=== PATIENT | male | born 1970 | race Two or more races ===

== ENCOUNTER 2019-01-03 18:16 | Emergency (ER) | payer OTHER ==
[~2019-01-03] VITALS: Ht 175.3 cm; Wt 99.8 kg
== END 2019-01-03 20:44 | disposition home or self-care (01) ==
LOC: ER 18:16
DX: S93.402A Sprain of unspecified ligament of left ankle, initial encounter (principal); X50.3XXA Overexertion from repetitive movements, initial encounter; Y93.89 Activity, other specified; Y92.89 Other specified places as the place of occurrence of the external cause; Y99.8 Other external cause status

== ENCOUNTER 2019-10-14 12:39 | Emergency (ER) | payer OTHER ==
[~2019-10-14] VITALS: Ht 180.3 cm; Wt 131.5 kg
[2019-10-14] MEDS ORDERED: HYZAAR 100-12.1 EACH PO (12:59)
== END 2019-10-14 18:21 | disposition home or self-care (01) ==
LOC: ER 12:39
DX: S46.212A Strain of muscle, fascia and tendon of other parts of biceps, left arm, initial encounter (principal); X50.9XXA Other and unspecified overexertion or strenuous movements or postures, initial encounter; Y93.89 Activity, other specified; Y92.89 Other specified places as the place of occurrence of the external cause; Y99.8 Other external cause status

== ENCOUNTER 2019-10-15 13:20 | Outpatient (CLI) | payer OTHER ==
[~2019-10-15 13:20] MED LIST: HYZAAR 100-12.1 EACH PO
== END 2019-10-15 13:29 | disposition home or self-care (01) ==
LOC: SONOGRAMA 13:20
DX: S46.212A Strain of muscle, fascia and tendon of other parts of biceps, left arm, initial encounter (principal)

== ENCOUNTER 2022-04-19 18:34 | Emergency (ER) | payer OTHER ==
[~2022-04-19] VITALS: Ht 177.8 cm; Wt 137.9 kg
== END 2022-04-19 22:55 | disposition home or self-care (01) ==
LOC: ER 18:34
DX: R51.9 Headache, unspecified (principal); I10 Essential (primary) hypertension; Z20.822 Contact with and (suspected) exposure to COVID-19

== ENCOUNTER 2025-08-03 13:27 | Emergency (ER) | payer OTHER ==
[~2025-08-03] VITALS: Ht 180.3 cm; Wt 149.7 kg
[2025-08-03 13:57] VITALS: BP 142/87; O2SAT 95
[2025-08-03] MEDS ORDERED: LACTOBACILLUS ACIDOPHILUS 1 CAP CAP PO ONE ×2 (14:15→14:51)
[2025-08-03] MEDS ORDERED: ACETAMINOPHEN 500 MG GEL..CAP PO ONE ×2 (14:15→14:50)
[2025-08-03] MEDS ORDERED: FAMOTIDINE/PF 20 MG/2 ML VIAL IV ONE (14:15)
[2025-08-03] MEDS ORDERED: 0.9 % SODIUM CHLORIDE 500 ML IV ONE (14:30)
[2025-08-03] MEDS ORDERED: FAMOTIDINE/PF 20 MG/2 ML VIAL ONE (14:51)
[2025-08-03 15:42] LABS: BASO % 0.3 % (0.1-1.2); EOS # 0.00 (0.04-0.54); EOS % 0.0 % (0.7-7.0); LYMPH # 0.40 (1.18-3.74); LYMPH % 5.9 % (19.3-53.1); MEAN PLATELET VOLUME 10.50 fl (9.4-12.4); MONO # 0.34 (0.24-0.82); MONO % 5.0 % (4.7-12.5); NEUT # 5.99 (1.56-6.13); NEUT % 88.4 % (34.0-71.1); RED CELL DISTRIBUTION WIDTH 12.7 % (11.6-14.4)
[2025-08-03 16:23] LABS: ALT/SGPT 40.0 U/L (12-78); AST/SGOT 31.0 U/L (15-37); BILIRUBIN TOTAL 1.09 mg/dL (0.3-1.2); BUN CREA RATIO 19.0 (7.0-25.0); CREATININE SERUM 1.07 mg/dL (0.70-1.30); GFR 72.29; GLOBULINA 4.0 G/DL (2.4-3.5); GLUCOSE FASTING 129.0 mg/dL (65-100); OSMOLALITY SERUM 276.0 MOSM/KG (275-295)
[2025-08-03 16:39] LABS: URINE APPEARANCE Clear; URINE BILIRRUBIN Negative (NEGATIVE); URINE BLOOD Negative; URINE COLOR Dark Yellow; URINE GLUCOSE Negative (NEGATIVE); URINE KETONE Negative (NEGATIVE); URINE LEUKOCYTE Negative; URINE NITRATE Negative; URINE PROTEIN 30 (NEGATIVE); URINE UROBILINOGEN 0.2 E.U./dl
[2025-08-03 16:40] LABS: URINE BACTERIA 592.7 uL (0.0-1933); URINE EPITHELIAL CELLS 78.7 uL (0.0-38.8); URINE RBC 12.0 uL (0.0-20.8); URINE WBC 46.5 uL (0.0-23.2)
[2025-08-03 17:00] LABS: COVID-19 AG NEGATIVE (NEGATIVE)
[2025-08-03] MEDS ORDERED: KETOROLAC TROMETHAMINE 30 MG VIAL ONE (17:06)
[2025-08-03] MEDS ORDERED: KETOROLAC TROMETHAMINE 30 MG VIAL IV ONE (17:15)
[2025-08-03 17:41] LABS: URINE CAST 0.14 uL (0.0-1.40)
[2025-08-03 17:45] LABS: TYPE CELLS SQUAMOUS; URINE MUCUS SCANT
[2025-08-03] MEDS ORDERED: INTESTINEX680 M1 PO (19:41)
[2025-08-03] MEDS ORDERED: CIPRO500 MG PO (19:41)
[2025-08-03] MEDS ORDERED: PEPCID AC20 MG PO (19:41)
[2025-08-03] MEDS ORDERED: METRONIDAZOLE500 MG PO (19:41)
[2025-08-03] MEDS ORDERED: LEVSIN0.125 MG PO (19:41)
== END 2025-08-03 19:52 ==
LOC: ER 13:27
PROVIDERS: General Practice
DX: K52.89 Other specified noninfective gastroenteritis and colitis (principal); R53.81 Other malaise; Z20.822 Contact with and (suspected) exposure to COVID-19; I10 Essential (primary) hypertension